=== PATIENT | female | born 1935 | race Caucasian/White ===

== ENCOUNTER 2021-06-24 08:45 | Inpatient (IN) | payer MEDICARE, BC ==
[~2021-06-24] VITALS: Ht 149.9 cm; Wt 85.0 kg
--- NOTE | 2021-06-24 09:00 | PHYS DOC ---
Adult General Chief Complaint Chief Complaint: MECHANICAL FALL HPI HPI Patient is a 86-year-old female who presents via EMS for a fall. This was unwitnessed and occurred at patient's skilled nursing. Patient reports she was in the laundry room and accidentally lost her footing and fell backwards landing in a seated position. She reports right lower back pain that is acute on chronic to her typical back pain without any changes in motor or sensory or neuro function. Also reports that during the fall, she suffered an inversion type ankle injury on the left that resulted in some mild edema, ecchymosis and bleeding of her toenail. She did not hit her head, no loss of consciousness. She does admit she is on blood thinners, warfarin. Denies any prodromal events, specifically no vision changes, recent fever or other upper respiratory infectious symptoms, no chest pain or shortness of breath. Review of Systems Review of Systems Fourteen body systems of review of systems have been reviewed. See HPI for pertinent positives and negative responses, other orta all other systems are negative, non-pertinent or non-contributory Allergies Allergies Allergies Coded Allergies Type Severity Reaction Last Updated Verified ciprofloxacin Allergy Unknown 06/24/21 Yes Uncoded Allergies Type Severity Reaction Last Updated Verified CONTRAST Allergy Unknown 06/24/21 SULFA Allergy Unknown 06/24/21 Physical Exam Physical Exam Constitutional: Pt is oriented to person, place, and time. Age-appropriate and anxious on arrival quivering and squealing at times when nervous HEENT: Head: Normocephalic and atraumatic. External ears unremarkable, negative powell sign Conjunctivae and EOM are normal. Pupils are equal, round, and reactive to light. Oropharynx is clear and moist. No hematomas or lacerations or abrasions to face or scalp OP clear, no blood, no malocclusion, dentition intact Nares clear, no nasal septal hematoma Midface stable Neck: C-spine midline nontender, no step-offs Cardiovascular: Normal rate, regular rhythm and normal heart sounds. Pulmonary/Chest: Effort normal and breath sounds normal. No respiratory distress. No wheezes. CTA bilaterally Abdominal: Soft. Bowel sounds are normal. Pt exhibits no distension. There is no tenderness. Musculoskeletal: Patient does have point tenderness over superior portion of left lateral malleolus of left ankle and base of left fifth metatarsal with mild focal edema and ecchymosis over the left foot. Patient's third toenail has mild crusted blood from the injury without any nailbed matrix involvement or nail instability. She has poor foot hygiene bilaterally Chest wall stable Pelvis stable but patient does admit tenderness to right hip No vertebral TTP and spine without stepoffs Neurological: Pt is alert and oriented to person, place, and time. Moving all extremities willfully, able to wiggle all fingers and toes 2+ patellar and Achilles reflexes Motor and sensory function fully intact to all x4 extremities No saddle anesthesia Downgoing toes bilaterally Skin: Skin is warm and dry. No abrasions, no lacerations Psychiatric: Anxious affect and mood Current Patient Data Vital Signs Vital Signs Date Time Temp Pulse Resp B/P (MAP) Pulse Ox O2 Delivery O2 Flow Rate FiO2 06/24/21 08:53 98.3 102 26 134/32 95 Vital Signs Date Time Temp Pulse Resp B/P (MAP) Pulse Ox O2 Delivery O2 Flow Rate FiO2 06/24/21 08:53 98.3 102 26 134/32 95 EKG EKG EKG ordered and interpreted by myself at 0918 hrs. as sinus rhythm at 92 bpm, prolonged QTC at 485 otherwise unremarkable intervals, left axis deviation, T wave inversion noted to lead aVR and V1 and V2, no STEMI Radiology/Procedures Radiology/Procedures XR FOOT_LEFT 3 VIEWS, XR PELVIS 1-2V, XR EXAM OF ANKLE_LEFT 3V Clinical indications: Reason: unwitnessed fall rt side pain AP view of the pelvis: No acute fracture or dislocation or osteolytic process is evident. 3 view study of the left ankle: There is cortical disruption of the lateral aspect of the distal left fibular epiphysis. No radiolucent fracture line is seen otherwise. This may represent a subtle nondisplaced fracture. The mortise ankle joint is intact. No lytic process is seen. Three-view left foot study: Dorsal subcutaneous soft tissue edema is seen. Moderate-sized plantar spur of the calcaneus is evident. There is a nondisplaced fracture of the distal metaphysis of the fifth proximal phalanx. There are old healed fractures with deformities of the distal metaphysis of the second and third and fourth metatarsal bones. No dislocation is seen. No lytic process is evident. IMPRESSION: Nondisplaced fractures of the distal left fibular epiphysis and the fifth proximal phalanx. Electronically signed by: Jorge Solomon MD (06/24/2021 10:15 AM) [id number] Heart Score C/O Chest Pain: No HEART Score for Chest Pain: HEART Score for Chest Pain Response (Comments) Value History Slighlty/Non-Suspicious 0 Total 0 Risk Factors: Risk Factors: DM, Current or recent (<one month) smoker, HTN, HLP, family history of CAD, obesity. Risk Scores: Risk Factors: DM, Current or recent (<one month) smoker, HTN, HLP, family history of CAD, obesity. Course & Med Decision Making Course & Med Decision Making ABCs unremarkable. I disclosed entirety of ER findings and discussed most likely diagnosis of closed left ankle and foot fractures. I discussed the potential for further diagnostic work-up in ER setting but given that patient fell less than 2 feet backwards on your backside and absence of any posterior vertebral pain or other prodromal symptoms such as chest pain, lightheadedness, dizziness or other concerning symptoms, all other more concerning diagnoses and further work-up was deferred. Plan of care discussed at length with need for close outpatient follow-up to review today's ER visit stressed. Strict return precautions were also discussed at length with good understanding by patient. Patient voiced understanding and agreement with the plan. Patient knows to come back for repeat evaluation if concerning signs or symptoms present prior to outpatient follow-up. Efforts were made to send patient back into rehab facility at same facility which she came from. Social work from [facility] ER assisted with this transition. Order signed. Patient returning to same facility under rehab care Dragon Disclaimer Dragon Disclaimer This electronic medical record was generated, in whole or in part, using a voice recognition dictation system. Departure Departure: Impression: Primary Impression: Closed fracture of epiphyseal plate of distal fibula Additional Impression: Closed fracture of phalanx of left fifth toe Disposition: 04 INTERMEDIATE CARE FACILITY Condition: STABLE Referrals: KEVIN FERGUSON MD (PCP) AREN BERNAL DPM Additional Instructions: You were seen for a fracture or broken bone in your left ankle and foot. You need to follow-up in the orthopedic clinic. Dr. Bernal's information is attached to your discharge packet. You should not use the affected body part until you follow up with orthopedics. Keep the area clean, dry, and avoid getting it wet. You should use ice, usually prescribed pain medications, and elevation to help with swelling and pain. Please participate in occupational and physical therapy provided at your facility. Return to the ED if you develop worsening pain, numbness, tingling, weakness, fever, redness, or any other new or concerning sy mptoms. Problem Qualifiers YESICA ARENAS DO Jun 24, 2021 09:00
--- NOTE | 2021-06-24 10:18 | RAD ---
XR FOOT_LEFT 3 VIEWS, XR PELVIS 1-2V, XR EXAM OF ANKLE_LEFT 3V Clinical indications: Reason: unwitnessed fall rt side pain AP view of the pelvis: No acute fracture or dislocation or osteolytic process is evident. 3 view study of the left ankle: There is cortical disruption of the lateral aspect of the distal left fibular epiphysis. No radiolucent fracture line is seen otherwise. This may represent a subtle nondi splaced fracture. The mortise ankle joint is intact. No lytic process is seen. Three-view left foot study: Dorsal subcutaneous soft tissue edema is seen. Moderate-sized plantar spu r of the calcaneus is evident. There is a nondisplaced fracture of the distal metaphysis of the fifth proximal phalanx. There are old healed fractures with deformities of the distal metaphysis of the se cond and third and fourth metatarsal bones. No dislocation is seen. No lytic process is evident. IMPRESSION: Nondisplaced fractures of the distal left fibular epiphysis and the fifth proximal phalan x. Electronically signed by: Jorge Solomon MD (06/24/2021 10:15 AM) [id number]
[2021-06-24] MEDS ORDERED: LIDOCAINE (700MG/PATCH) PATCH. ONE (11:11)
[2021-06-24] MEDS ORDERED: ACETAMINOPHEN 325 MG TABLET PO ONE ×2 (11:11→11:15)
[2021-06-24] MEDS ORDERED: traMADol 50 MG TABLET PO ONE (11:30)
--- NOTE | 2021-06-24 12:07 | EKG ---
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
--- NOTE | 2021-06-24 15:38 | RAD ---
EXAM: Chest, single view. HISTORY: Fall. Pain. COMPARISON: None. FINDINGS: A frontal view of the chest is obtained. There is diffuse increased interstitial opacity. N o consolidation, pleural effusion or pneumothorax is seen. There is a calcified left upper lobe granu benita. There is cardiomegaly. There is chronic deformity of the right shoulder. IMPRESSION: 1. Diffuse increased interstitial opacity likely due to pulmonary congestion. This may be superimpose d on chronic interstitial changes. 2. Cardiomegaly. Electronically signed by: Leana Watt MD (06/24/2021 3:35 PM) [id number]
--- NOTE | 2021-06-24 15:39 | RAD ---
EXAM: Left knee, 3 views. HISTORY: Pain. COMPARISON: None. FINDINGS: 3 views of the left knee are obtained. There is moderate to severe lateral compartment join t space narrowing with subchondral sclerosis and spurring. There is mild to moderate patellofemoral c ompartment spurring. There is no fracture, dislocation or subluxation. There is a moderate to large l eft knee effusion. IMPRESSION: 1. Moderate to severe lateral compartment and mild to moderate tricompartmental femoral compartment o steoarthritis of the left knee. 2. Moderate to large left knee effusion. Electronically signed by: Leana Watt MD (06/24/2021 3:36 PM) [id number]
[2021-06-24] MEDS ORDERED: ACETAMINOPHEN 325 MG TABLET PO PRN (16:45)
[2021-06-24] MEDS ORDERED: NITROGLYCERIN SUBLINGUAL 0.4 MG BOTTLE OF 25. SL PRN (16:45)
[2021-06-24] MEDS ORDERED: traMADol 50 MG TABLET ONE (18:01)
[2021-06-24 18:50] VITALS: BP 171/75
[2021-06-24] MEDS ORDERED: PATCH REMOVAL. MC SCH (21:00)
[2021-06-24] MEDS ORDERED: WARFARIN 2.5 MG TABLET. PO ONE (21:00)
[2021-06-24] MEDS ORDERED: EZETIMIBE 10 MG TABLET PO SCH (21:00)
[2021-06-24] MEDS ORDERED: ZOLPIDEM 5 MG TABLET. PO PRN (21:00)
[2021-06-24] MEDS ORDERED: SIMVASTATIN 20 MG TABLET PO SCH (21:00)
[2021-06-24 21:16] LABS: BASO % 0 % (0-3); EOS % 0 % (0-3); HEMATOCRIT 33.9 % (36.0-47.0); HEMOGLOBIN 11.1 g/dL (12.0-15.5); LYMPH # 0.6 x10^3/uL (1.0-4.8); LYMPH % 7 % (24-48); MEAN CORPUSCULAR HEMOGLOBIN 33 pg (25-35); MEAN CORPUSCULAR HGB CONC 33 g/dL (31-37); MEAN CORPUSCULAR VOLUME 100 fL (79-100); MONO % 12 % (0-9); NEUT # 6.6 x10^3uL (1.8-7.7); NEUT % 80 % (31-73); PLATELET COUNT 169 x10^3/uL (140-400); RED BLOOD COUNT 3.38 x10^6/uL (3.50-5.40); RED CELL DISTRIBUTION WIDTH 14.5 % (11.5-14.5); WHITE BLOOD COUNT 8.3 x10^3/uL (4.0-11.0)
[2021-06-24 21:28] LABS: CALCIUM 8.2 mg/dL (8.5-10.1); CREATININE 1.7 mg/dL (0.6-1.0); GFR 28.5; POTASSIUM 4.6 mmol/L (3.5-5.1)
[2021-06-24] MEDS: METOPROLOL TART IMMED RELEASE 50 MG TABLET PO SCH (22:04)
[2021-06-24] MEDS: ACETAMINOPHEN 325 MG TABLET PO PRN ×2 (22:05→22:35)
[2021-06-24] MEDS: traMADol 50 MG TABLET PO PRN (22:07)
[2021-06-24] MEDS: LISINOPRIL 20 MG TABLET PO SCH (22:07)
[2021-06-24 23:00] VITALS: BP 148/69
[2021-06-25] MEDS ORDERED: HYDR12.58 PO (00:52)
[2021-06-25] MEDS ORDERED: PANT20TA4 PO (00:52)
[2021-06-25] MEDS ORDERED: POTA10TA5 PO (00:52)
[2021-06-25] MEDS ORDERED: LEVO75TA5 PO (00:52)
[2021-06-25] MEDS: traMADol 50 MG TABLET PO PRN ×2 (06:10→21:35)
[2021-06-25] MEDS: ACETAMINOPHEN 325 MG TABLET PO PRN ×3 (06:10→23:07)
[2021-06-25] MEDS: LEVOTHYROXINE 75 MCG TABLET PO SCH (06:10)
[2021-06-25 06:28] VITALS: BP 151/74
[2021-06-25] MEDS: POTASSIUM CHLORIDE 10 MEQ TABLET.ER. PO SCH (07:45)
[2021-06-25] MEDS: METOPROLOL TART IMMED RELEASE 50 MG TABLET PO SCH ×4 (07:45→20:27)
[2021-06-25] MEDS: hydroCHLOROthiazide 12.5 MG CAPSULE PO SCH (07:45)
[2021-06-25] MEDS: PANTOPRAZOLE 40 MG TABLET. PO SCH (07:46)
[2021-06-25] MEDS ORDERED: LIDOCAINE (700MG/PATCH) PATCH. TD SCH (09:00)
[2021-06-25] MEDS ORDERED: LIDOCAINE (700MG/PATCH) PATCH. TD ONE (09:00)
[2021-06-25 10:56] VITALS: BP 120/73
[2021-06-25] MEDS ORDERED: HYDR-2869 PO (12:22)
[2021-06-25] MEDS ORDERED: WARF2.5T71 PO (12:45)
[2021-06-25] MEDS ORDERED: TRAM50TA PO (12:45)
[2021-06-25] MEDS ORDERED: EZET1TAB30 PO (12:45)
[2021-06-25] MEDS ORDERED: CALC1CAP6 PO (12:45)
[2021-06-25] MEDS ORDERED: LISI20TA18 PO (12:45)
[2021-06-25] MEDS ORDERED: NEBI10TA3 PO (12:45)
[2021-06-25] MEDS ORDERED: WARF-31 PO (12:45)
[2021-06-25] MEDS ORDERED: traMADol 50 MG TABLET PO PRN (14:45)
[2021-06-25 15:06] VITALS: BP 144/80
--- NOTE | 2021-06-25 15:22 | HP ---
HISTORY OF PRESENT ILLNESS: An 86-year-old female who apparently slipped and fell and suffered nondisplaced fractures of the distal left fibular epiphysis and fifth proximal phalanx. She is a member of the [facility] and this being a Sunday, they do not readmit, so she was admitted to the hospital for further evaluation. Upon further dissertation, the patient was found to have a coag INR of 5, although she did not have any serious bleeding. Her SARS COVID was negative. The rest of her basic labs were stable except for an elevated BNP. 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 HOME MEDICATIONS: Presently include warfarin 5 mg Sunday, Sunday, Sunday, , Sunday, Sunday and extra 2.5 mg on Sunday, Vytorin 10/20, hydralazine 50 mg b.i.d., Bystolic 10 mg at bedtime, lisinopril 20, tramadol, potassium chloride, calcium carbonate, hydrochlorothiazide, Protonix 20, and levothyroxine 75 mcg. ALLERGIES: IODINE, CONTRAST MEDIA, SULFA, SULFONAMIDES AND CIPROFLOXACIN. SOCIAL HISTORY: No smoking, alcohol or drug use. The patient is full code. FAMILY HISTORY: Unremarkable. REVIEW OF SYSTEMS: The patient denies any headaches, visual changes, blurred vision, double vision. Slipped on the floor. Denies chest pain, shortness of breath, abdominal pain. Does have pain down in her ankle area of the distal left leg, but other than that, the patient says she has normal sensation there. PHYSICAL EXAMINATION: GENERAL: Pleasant white female. VITAL SIGNS: Blood pressure 150/70, respiratory rate 17, pulse 60, afebrile, 2 liters at 93. The patient is alert and oriented as noted. LUNGS: Diminished but basically clear. CARDIOVASCULAR: Regular sinus rhythm. HEENT: The patient's head was atraumatic, normocephalic. Eyes: PERRLA, without jaundice noted. ABDOMEN: Soft, protuberant, but nontender. EXTREMITIES: Without clubbing, cyanosis. Trace edema of left ankle foot area, was splinted and in position. Pulses noted distally with capillary refill. NEUROLOGIC: The patient was alert and oriented. Speech fluent, spontaneous, and appropriate; quite demonstrative about her medications and her renal function and Dr. Gutierrez asked to control those medications. IMPRESSION: A slip and fall at [place], nondisplaced fractures of the distal left fibular epiphysis and fifth proximal phalanx, mild pulmonary congestion, essential hypertension, chronic kidney disease stage IIIB, hypocoagulable state. Hold her Coumadin. Monitor PT, OT to evaluate and make further evaluation on her as indicated. ERNESTO DR: Kelvin TID: [id number]
[2021-06-25 19:05] VITALS: BP 126/72
[2021-06-25] MEDS ORDERED: coumadin PO ×2 (19:26)
[2021-06-25] MEDS: LISINOPRIL 20 MG TABLET PO SCH (19:54)
[2021-06-25] MEDS: SIMVASTATIN 20 MG TABLET PO SCH (19:55)
[2021-06-25] MEDS ORDERED: LISINOPRIL 20 MG TABLET PO SCH (21:00)
[2021-06-25 22:35] VITALS: BP 114/67
[2021-06-26] MEDS: traMADol 50 MG TABLET PO PRN ×3 (04:07→17:42)
[2021-06-26] MEDS: LEVOTHYROXINE 75 MCG TABLET PO SCH (05:20)
[2021-06-26 05:40] VITALS: BP 156/84
[2021-06-26] MEDS: POTASSIUM CHLORIDE 10 MEQ TABLET.ER. PO SCH (08:00)
[2021-06-26] MEDS: hydroCHLOROthiazide 12.5 MG CAPSULE PO SCH (08:40)
[2021-06-26] MEDS: PANTOPRAZOLE 40 MG TABLET. PO SCH (08:40)
[2021-06-26] MEDS: METOPROLOL TART IMMED RELEASE 50 MG TABLET PO SCH ×2 (08:41→20:04)
[2021-06-26] MEDS: EZETIMIBE 10 MG TABLET PO SCH (08:42)
[2021-06-26] MEDS: ACETAMINOPHEN 325 MG TABLET PO PRN ×2 (08:42→20:04)
[2021-06-26] MEDS ORDERED: NON FORMULARY ITEM (Nebivolol Hcl (Bystolic) 1 TAB) PO SCH (09:00)
[2021-06-26 11:17] VITALS: BP 139/80
[2021-06-26 16:10] VITALS: BP 159/88
[2021-06-26 19:29] VITALS: BP 150/73
[2021-06-26] MEDS: LISINOPRIL 20 MG TABLET PO SCH (20:04)
[2021-06-26] MEDS: SIMVASTATIN 20 MG TABLET PO SCH (20:04)
--- NOTE | 2021-06-26 23:17 | PN ---
SUBJECTIVE: An 86-year-old female who came in of course with a fracture of her left lower leg. The patient is resting fairly comfortably. Because of protocols at her facility, she is not able to get back. Her INR is still 4.2 and needs to be rechecked and adjusted on her Coumadin. Otherwise, the patient has no complaints. Does not want to adjust any of her medications and that will be taken care of. OBJECTIVE: VITAL SIGNS: Blood pressure 159/88, respiratory rate 18, pulse 75, afebrile, 92 on room air. GENERAL: The patient otherwise alert and oriented. LUNGS: Clear. CARDIOVASCULAR: stable. ABDOMEN: Soft, nontender. EXTREMITIES: The ankle was in a splint and seems to be holding on her own, apparently sat on the side of the bed today and made some progress in that regard. PLAN: She will be transferred to the rehabilitation center hopefully at [place] soon. MILLICENT DR: Kelvin TID: [id number]
[2021-06-26 23:51] VITALS: BP 145/79
[2021-06-27] MEDS: ACETAMINOPHEN 325 MG TABLET PO PRN (02:12)
[2021-06-27] MEDS: traMADol 50 MG TABLET PO PRN (02:12)
[2021-06-27] MEDS: LEVOTHYROXINE 75 MCG TABLET PO SCH (06:06)
[2021-06-27 06:19] VITALS: BP 180/97
[2021-06-27 06:25] VITALS: BP 171/85
[2021-06-27 06:34] LABS: ALBUMIN 2.5 g/dL (3.4-5.0); CALCIUM 8.1 mg/dL (8.5-10.1); CREATININE 1.6 mg/dL (0.6-1.0); GFR 30.6; PHOSPHORUS 3.3 mg/dL (2.6-4.7); POTASSIUM 4.2 mmol/L (3.5-5.1)
[2021-06-27] MEDS: POTASSIUM CHLORIDE 10 MEQ TABLET.ER. PO SCH (08:00)
[2021-06-27] MEDS: hydroCHLOROthiazide 12.5 MG CAPSULE PO SCH (08:43)
[2021-06-27] MEDS: METOPROLOL TART IMMED RELEASE 50 MG TABLET PO SCH (08:44)
[2021-06-27] MEDS: EZETIMIBE 10 MG TABLET PO SCH (08:44)
[2021-06-27] MEDS: PANTOPRAZOLE 40 MG TABLET. PO SCH (08:44)
--- NOTE | 2021-06-27 09:33 | DISCH ---
DISCHARGE ORDERS DISCHARGE DATE: Jun 27, 2021 FINAL DIAGNOSIS nondisplaced fractures of the distal left fibular epiphysis and fifth proximal phalanx CONDITION AT DISCHARGE: Stable Code Status: Full SNF STAY <30 DAYS: Yes HOSPICE: No HOSPICE EVALUATE & TREAT: No ADMIT TO LTAC: No POST DISCHARGE ORDERS: ACTIVITY ORDERS: Activity as tolerated WEIGHT BEARING STATUS: Non weight bearing DIET AFTER DISCHARGE: Regular WOUND/INCISION CARE: Ice to area for comfort DISCHARGE MEDICATIONS: Home Meds Reported Medications [coumadin] No Conflict Check, 2.5 MG PO qd except on Sun06/25/21 [coumadin] No Conflict Check, 5 MG PO q Sun06/25/21 Ezetimibe/Simvastatin (VYTORIN 10-20 MG TABLET) 1 Each Tablet, 1 TAB PO DAILY for . for 30 Days, #30 TAB 0 Refills 06/25/21 Tramadol Hcl (TRAMADOL HCL) 50 Mg Tablet, 50 MG PO PRN Q6HRS PRN for PAIN, TAB 06/25/21 Lisinopril (LISINOPRIL) 20 Mg Tablet, 1 TAB PO QHS for ., #30 TAB 5 Refills 06/25/21 Calcium Carbonate/Vitamin D3 (CALCIUM 600 + VIT D SOFTGEL) 1 Each Capsule, 1 EACH PO DAILY for ., CAP 06/25/21 Nebivolol Hcl (BYSTOLIC) 10 Mg Tablet, 1 TAB PO DAILY for ., #90 TAB 1 Refill 06/25/21 Hydralazine Hcl (HYDRALAZINE HCL) 50 Mg Tablet, 1 TAB PO BID for ., #180 TAB 3 Refills 06/25/21 Levothyroxine Sodium (LEVOTHYROXINE SODIUM) 75 Mcg Tablet, 1 TAB PO DAILY for HYPOTHYRIOD, #30 TAB 5 Refills 06/25/21 Potassium Chloride (KLOR-CON 10) 10 Meq Tablet.er, 1 TAB PO DAILY for SUPPLEMENT for 30 Days, #30 TAB 0 Refills 06/25/21 Pantoprazole Sodium (PANTOPRAZOLE SODIUM) 20 Mg Tablet.dr, 20 MG PO DAILY for GERD, TAB 06/25/21 Hydrochlorothiazide (HYDROCHLOROTHIAZIDE TABLET) 12.5 Mg Tablet, 12.5 MG PO DAILY for DIURETIC, TAB 0 Refills 06/25/21 KEVIN FERGUSON MD Jun 27, 2021 09:33
[2021-06-27] MEDS ORDERED: LORazepam 0.5 MG TABLET PO PRN (10:00)
[2021-06-27] MEDS ORDERED: BISACODYL TAB 5 MG TABLET.DR. PO ONE (10:00)
[2021-06-27 11:04] VITALS: BP 132/80
== END 2021-06-27 15:00 | DRG 542 ==
LOC: ER 08:45 → 1 SOUTH 16:44 → ER 18:19
PROVIDERS: ADMIT Family Medicine; ATTEND Family Medicine
DX: M80.062A Age-related osteoporosis with current pathological fracture, left lower leg, initial encounter for fracture (principal); E43 Unspecified severe protein-calorie malnutrition; G89.29 Other chronic pain; W01.0XXA Fall on same level from slipping, tripping and stumbling without subsequent striking against object, initial encounter; Z20.822 Contact with and (suspected) exposure to COVID-19; M80.072A Age-related osteoporosis with current pathological fracture, left ankle and foot, initial encounter for fracture; N18.32 Chronic kidney disease, stage 3b; I12.9 Hypertensive chronic kidney disease with stage 1 through stage 4 chronic kidney disease, or unspecified chronic kidney disease; Z88.2 Allergy status to sulfonamides; Z88.1 Allergy status to other antibiotic agents; Z91.041 Radiographic dye allergy status; Y93.89 Activity, other specified; Y92.89 Other specified places as the place of occurrence of the external cause; Y99.8 Other external cause status; Z68.37 Body mass index [BMI] 37.0-37.9, adult
CPT/HCPCS: 36415; 71045; 72170; 73562; 73610; 73630; 80048; 80069; 83880; 85025; 85610; 87426; 93005; U0003; 97110; 97530; 97535; 99285-25

== ENCOUNTER 2021-08-18 11:27 | Observation (INO) | payer MEDICARE, BC ==
[~2021-08-18] VITALS: Ht 152.4 cm; Wt 82.5 kg
[~2021-08-18 11:27] MED LIST: CALC1CAP6 PO; EZET1TAB30 PO; HYDR-2869 PO; HYDR12.58 PO; LEVO75TA5 PO; LISI20TA18 PO; NEBI10TA3 PO; PANT20TA4 PO; POTA-112 PO; TRAM50TA PO; WARF-31 PO; WARF2.5T71 PO; coumadin PO
--- NOTE | 2021-08-18 12:12 | PHYS DOC ---
Past History Additional Past Medical Histor: P.E. (OLGA SAMUEL APRN) Past Surgical History: Tubal ligation (OLGA SAMUEL APRN) Alcohol Use: None (OLGA SAMUEL APRN) General Adult EDM: Chief Complaint: FOOT INJURY PAIN HPI: HPI: Patient is a 86-year-old female presents with left foot pain. Patient states "yesterday my friend was helping me put my shoe on and that is when the pain started". "I broke my ankle 3 months ago and just finished rehab". Patient is reporting pain to her left heel. Unable to bear weight. Denies known trauma. pain is increased with dorsiflexion. Pedal pulses are intact. Denying anything for pain. (OLGA SAMUEL APRN) Review of Systems: Review of Systems: ROS At least 10 ROS systems have been reviewed and are negative except as documented in the HPI. General: Negative except as outlined in HPI above. Skin: Negative except as outlined in HPI above. HEENT: Negative except as outlined in HPI above. Neck: Negative except as outlined in HPI above. Respiratory: Negative except as outlined in HPI above.. Cardiovascular: Negative except as outlined in HPI above. Abdomen: Negative except as outlined in HPI above. : Negative except as outlined in HPI above. Back/MSK: Negative except as outlined in HPI above. Neuro: Negative except as outlined in HPI above. Psych: Negative except as outlined in HPI above. (OLGA SAMUEL APRN) Allergies: Allergies: Allergies Coded Allergies Type Severity Reaction Last Updated Verified Iodinated Contrast Media Allergy Unknown 06/24/21 Yes Sulfa (Sulfonamide Antibiotics) Allergy Unknown 06/24/21 Yes ciprofloxacin Allergy Unknown 06/24/21 Yes (OLGA SAMUEL APRN) Physical Exam: PE: Constitutional: Well developed, well nourished, no acute distress, non-toxic appearance. [] HENT: Normocephalic, atraumatic, bilateral external ears normal, oropharynx moist, no oral exudates, nose normal. [] Eyes: PERRLA, EOMI, conjunctiva normal, no discharge. [] Neck: Normal range of motion, no tenderness, supple, no stridor. [] Cardiovascular:Heart rate regular rhythm, no murmur [] Lungs & Thorax: Bilateral breath sounds clear to auscultation [] Abdomen: Bowel sounds normal, soft, no tenderness, no masses, no pulsatile masses. [] Skin: Warm, dry, no erythema, no rash. [] Back: No tenderness, no CVA tenderness. [] Extremities: Left foot tenderness, no cyanosis, no clubbing, unable to bear weight, no edema, pedal pulses intact Neurologic: Alert and oriented X 3, normal motor function, normal sensory fu nction, no focal deficits noted. [] Psychologic: Affect normal, judgement normal, mood normal. [] (OLGA SAMUEL APRN) Current Patient Data: Vital Signs: Vital Signs Date Time Temp Pulse Resp B/P (MAP) Pulse Ox O2 Delivery O2 Flow Rate FiO2 08/18/21 11:29 98.3 78 16 155/73 (100) 96 Room Air (OLGA SAMUEL APRN) EKG: EKG: [] (OLGA SAMUEL APRN) Radiology/Procedures: Radiology/Procedures: [] Left foot 3 views, left ankle views. HISTORY: Pain Left ankle 3 views were taken left ankle. There is soft tissue swelling. There is not evidence of an acute fracture at the ankle. Left foot 3 views were taken the left foot. There are fractures of the head of the second, third, and fourth metatarsals with mild angulated. There is flexion deformities of the toes. There is soft tissue swelling of the foot. IMPRESSION: 1. No acute fracture noted left ankle. 2. Soft tissue swelling left foot and ankle. 3. Fractures of the heads of the distal second, third and fourth metatarsals. 4. Flexion deformities of the toes. Electronically signed by: Coy Steele MD (08/18/2021 12:22 PM) [id number] (OLGA SAMUEL APRN) Heart Score: C/O Chest Pain: No Risk Factors: Risk Factors: DM, Current or recent (<one month) smoker, HTN, HLP, family history of CAD, obesity. Risk Scores: Score 0 - 3: 2.5% MACE over next 6 weeks - Discharge Home Score 4 - 6: 20.3% MACE over next 6 weeks - Admit for Clinical Observation Score 7 - 10: 72.7% MACE over next 6 weeks - Early Invasive Strategies (OLGA SAMUEL APRN) Course & Med Decision Making: Course & Med Decision Making Pertinent Labs and Imaging studies reviewed. (See chart for details) [] 86-year-old female with pain to ball of foot and Achilles. X-ray of left foot and ankle ordered to rule out fracture. Denies trauma. Pedal pulses are intact. Patient is unable to bear weight. X-ray of left foot and ankle are both negative for fracture. Patient states that she is unable to walk on her foot even with her boot and concerned about going home. Spoke with Dr. Sanchez who will accept patient for left foot pain and chronic deconditioning. (OLGA SAMUEL APRN) Course & Med Decision Making I was the Attending physician on the above date of service of this patient. This patient was evaluated, examined, treated, and dispositioned from the emergency department by the mid-level practitioner. Patient unable to safely ambulate and care for self at home. Does not have regular care at home to assist through personal deficits. Unsafe to disposition home; at minimum plan admission for home safety evaluation, social and physical therapy evaluations, possible placement Electronically signed, Yesica Arenas DO (YESICA ARENAS DO) Estefani Disclaimer: Estefani Disclaimer: This electronic medical record was generated, in whole or in part, using a voice recognition dictation system. (OLGA SAMUEL APRN) Departure Departure: Impression: Primary Impression: Ankle pain, left Qualified Codes: M25.572 - Pain in left ankle and joints of left foot Additional Impression: Physical deconditioning Disposition: ADMITTED INPATIENT Admitting Physician: Kevin Ferguson (OLGA SAMUEL APRN) Condition: STABLE Referrals: KEVIN FERGUSON MD (PCP) OLGA SAMUEL APRN Aug 18, 2021 12:12 YESICA ARENAS DO Aug 22, 2021 11:52
--- NOTE | 2021-08-18 12:25 | RAD ---
Left foot 3 views, left ankle views. HISTORY: Pain Left ankle 3 views were taken left ankle. There is soft tissue swelling. There is not evidence of an acute fract ure at the ankle. Left foot 3 views were taken the left foot. There are fractures of the head of the second, third, and fourth me tatarsals with mild angulated. There is flexion deformities of the toes. There is soft tissue swellin g of the foot. IMPRESSION: 1. No acute fracture noted left ankle. 2. Soft tissue swelling left foot and ankle. 3. Fractures of the heads of the distal second, third and fourth metatarsals. 4. Flexion deformities of the toes. Electronically signed by: Coy Steele MD (08/18/2021 12:22 PM) [id number]
[2021-08-18] MEDS ORDERED: traMADol 50 MG TABLET PO ONE (14:15)
[2021-08-18 16:26] VITALS: BP 159/73
[2021-08-18] MEDS ORDERED: ACET325T21 PO (18:35)
[2021-08-18 19:52] VITALS: BP 104/68
[2021-08-18] MEDS ORDERED: ACETAMINOPHEN 325 MG TABLET PO PRN (20:45)
[2021-08-18] MEDS ORDERED: COUMADIN 5 MG PO SCH (20:45)
[2021-08-18] MEDS ORDERED: WARFARIN 2.5 MG PO SCH (20:45)
[2021-08-18] MEDS ORDERED: LISINOPRIL 20 MG TABLET PO SCH (21:00)
[2021-08-18] MEDS: traMADol 50 MG TABLET PO PRN (21:47)
[2021-08-18 23:19] VITALS: BP 148/68
[2021-08-19] MEDS ORDERED: LEVOTHYROXINE 75 MCG TABLET PO SCH (06:00)
[2021-08-19 06:03] VITALS: BP 153/80
[2021-08-19 08:05] VITALS: BP 153/80
[2021-08-19] MEDS: traMADol 50 MG TABLET PO PRN (08:42)
[2021-08-19] MEDS ORDERED: PANTOPRAZOLE 40 MG TABLET. PO SCH (09:00)
[2021-08-19] MEDS ORDERED: CHOLECALCIFEROL (VITAMIN D3) 1,000 UNIT TABLET PO SCH (09:00)
[2021-08-19] MEDS ORDERED: METOPROLOL TART IMMED RELEASE 50 MG TABLET PO SCH (09:00)
[2021-08-19] MEDS ORDERED: SIMVASTATIN 20 MG TABLET PO SCH (09:00)
[2021-08-19] MEDS ORDERED: hydroCHLOROthiazide 12.5 MG CAPSULE PO SCH (09:00)
[2021-08-19] MEDS ORDERED: EZETIMIBE 10 MG TABLET PO SCH (09:00)
[2021-08-19] MEDS ORDERED: CALCIUM CARB/VIT D3 500/200 TABLET PO SCH ×2 (09:00→17:00)
[2021-08-19] MEDS ORDERED: POTASSIUM CHLORIDE 10 MEQ TABLET.ER. PO SCH (09:00)
--- NOTE | 2021-08-19 09:23 | DISCH ---
HOME HEALTH DISCHARGE/MEDS DISCHARGE INFORMATION: Discharge Date: Aug 19, 2021 Final Diagnosis: Problems Medical Problems: (1) Ankle pain, left Status: Acute (2) Physical deconditioning Status: Acute Condition on Discharge: Stable CODE STATUS: Code Status: Full HOME HEALTH: Face to Face: I certify this patient is under my care and that I, or a nurse practitioner or physician's geriatric nurse assistant working with me, had a face to face encounter that meets the physician face to face encounter requirements with this patient on August 19, 2021. Medical Condition(s): Falls, FX, HTN Nursing Home For: Assess Cardiopulm Status, Assess & Educate Safety, Assess/Skilled Observatio, Medication Management, Pain Management Physical Therapy For: Evalulation/Treatment Occupational Therapy For: Evaluation/Treatment POST DISCHARGE ORDERS: Activity Instructions for Disc: Activity as tolerated Weight Bearing Status after Di: No restrictions DIET AFTER DISCHARGE: Cardiac CHECKS AFTER DISCHARGE: Checks after discharge: Check blood press - daily CERTIFICATION STATEMENT: Certification Statement: Based on the above finding, I certify that this patient is confined to the home and needs intermittent fpc care, physical therapy and/or speech therapy, or continues to need occupational therapy.~ This patient is under my care, and I have initiated the establishment of the plan of care.~ This patient will be followed by myself or a community physician who will periodically review the plan of care. DISCHARGE MEDICATIONS: Home Meds Reported Medications Acetaminophen (ACETAMINOPHEN) 325 Mg Tablet, 1 TAB PO Q6HRS PRN for pain or fever for 24 Days, #100 TAB 0 Refills 08/18/21 [coumadin] No Conflict Check, 2.5 MG PO qd except on Sun06/25/21 [coumadin] No Conflict Check, 5 MG PO q Wed 06/25/21 Ezetimibe/Simvastatin (VYTORIN 10-20 MG TABLET) 1 Each Tablet, 1 TAB PO DAILY for . for 30 Days, #30 TAB 0 Refills 06/25/21 Tramadol Hcl (TRAMADOL HCL) 50 Mg Tablet, 50 MG PO PRN Q6HRS PRN for PAIN, TAB 06/25/21 Lisinopril (LISINOPRIL) 20 Mg Tablet, 1 TAB PO QHS for ., #30 TAB 5 Refills 06/25/21 Calcium Carbonate/Vitamin D3 (CALCIUM 600 + VIT D SOFTGEL) 1 Each Capsule, 1 EACH PO DAILY for ., CAP 06/25/21 Nebivolol Hcl (BYSTOLIC) 10 Mg Tablet, 1 TAB PO DAILY for ., #90 TAB 1 Refill 06/25/21 Hydralazine Hcl (HYDRALAZINE HCL) 50 Mg Tablet, 1 TAB PO BID for ., #180 TAB 3 Refills 06/25/21 Levothyroxine Sodium (LEVOTHYROXINE SODIUM) 75 Mcg Tablet, 1 TAB PO DAILY for HYPOTHYRIOD, #30 TAB 5 Refills 06/25/21 Potassium Chloride (KLOR-CON 10) 10 Meq Tablet.er, 1 TAB PO DAILY for SUPPLEMENT for 30 Days, #30 TAB 0 Refills 06/25/21 Pantoprazole Sodium (PANTOPRAZOLE SODIUM) 20 Mg Tablet.dr, 20 MG PO DAILY for GERD, TAB 06/25/21 Hydrochlorothiazide (HYDROCHLOROTHIAZIDE TABLET) 12.5 Mg Tablet, 12.5 MG PO JORGE Y for DIURETIC, TAB 0 Refills 06/25/21 KEVIN FERGUSON MD Aug 19, 2021 09:23
--- NOTE | 2021-08-19 09:33 | HP ---
DATE OF SERVICE: 08/19/2021 ADMIT DATE: 08/18/2021 HISTORY OF PRESENT ILLNESS: This is an 86-year-old female came in through the Emergency Room with a chief complaint of severe pain in her left foot. The patient had severe pain in her left foot and ankle. She previously had a fracture to the foot approximately 3 months ago. She says she could not bear weight on it. She was in severe pain of 9/10. She said she was unable to take care of herself at home, so she was admitted for evaluation and placement into a nursing facility, which was cleared with her family. She refused an IV. She refused some other testing as well. PAST MEDICAL HISTORY: Includes cardiac problems, hypertension, pulmonary emboli, hysterectomy, arthritis, fractures left heel and left toe fractures, back pain, hypothyroidism, some clotting problems. Her vaccinations for diphtheria, tetanus are up-to-date as well as influenza as well as COVID. FAMILY HISTORY: Arthritis in father and mother. ALLERGIES: CONTRAST MEDIA IODINATED, SULFUR AND CIPROFLOXACIN. SOCIAL HISTORY: No smoking, alcohol or drug use. She is a full code. REVIEW OF SYSTEMS: The patient denies any problems with headaches, visual changes, blurred vision, double vision. Denies any melena, hematochezia, or hematemesis. Denies any trouble swallowing. Denies chest pain, shortness of breath, abdominal pain. Denies nausea, vomiting. Denies any problems with urination. She does have pain in her left foot, more severe now than she has had in a while since her friend try to put her shoe on and felt severe pain in that foot. PHYSICAL EXAMINATION: GENERAL: This is a very pleasant female, looking younger than stated age. VITAL SIGNS: Blood pressure 153/80, respiratory rate 18, pulse 70, afebrile, 96% oxygen saturation. NEUROLOGIC: The patient is alert and oriented. Her speech is spontaneous and appropriate. She is alert and oriented x3. HEENT: Her eyes were PERRLA. Mouth and throat were normal. NECK: Supple without JVD, carotid bruits, or thyroidmegaly. LUNGS: Diminished throughout, but clear. CARDIOVASCULAR: Regular sinus rhythm, S1, S2, without murmur, rub, thrill, or extra heart sound. ABDOMEN: Soft, nontender, no rebound or guarding. Positive bowel sounds. No hepatosplenomegaly. No bruits were noted. EXTREMITIES: Without clubbing, cyanosis, nor edema. The patient's pulses were 2/4, good capillary refill. The left foot, however, showed tenderness on palpation of the hands of the distal second, third and fourth metatarsals and there was some flexion deformities considering these were hammertoes, but they were tender, but not extremely off the chart. NEUROLOGIC: Neurologically, as noted, she seemed to be at baseline, stable, alert and oriented and so forth. LABORATORY DATA: The patient had no labs drawn down in the Emergency Room, but those are trying to be obtained as well and will continue to be monitored on that as well as her protime as she is on warfarin, trying to assess whether or not she needs to stay on it long-term or not. IMPRESSION: Intractable pain, history of fractures to the foot. She is COVID negative. Essential hypertension. PLAN: Continue to work her up as much as she will allow us to and possibly placement in a nursing facility per family's request. SAL DR: Kelvin TID: [id number]
[2021-08-19 09:48] LABS: BASO % 1 % (0-3); EOS # 0.1 x10^3/uL (0.0-0.7); EOS % 2 % (0-3); HEMATOCRIT 35.8 % (36.0-47.0); HEMOGLOBIN 11.6 g/dL (12.0-15.5); LYMPH # 0.6 x10^3/uL (1.0-4.8); LYMPH % 12 % (24-48); MEAN CORPUSCULAR HEMOGLOBIN 33 pg (25-35); MEAN CORPUSCULAR HGB CONC 32 g/dL (31-37); MEAN CORPUSCULAR VOLUME 102 fL (79-100); MONO # 0.5 x10^3/uL (0.0-1.1); MONO % 12 % (0-9); NEUT # 3.3 x10^3uL (1.8-7.7); NEUT % 73 % (31-73); PLATELET COUNT 240 x10^3/uL (140-400); RED BLOOD COUNT 3.52 x10^6/uL (3.50-5.40); RED CELL DISTRIBUTION WIDTH 15.5 % (11.5-14.5); WHITE BLOOD COUNT 4.6 x10^3/uL (4.0-11.0)
[2021-08-19 09:53] LABS: CALCIUM 8.8 mg/dL (8.5-10.1); CREATININE 1.8 mg/dL (0.6-1.0); GFR 26.7; POTASSIUM 4.6 mmol/L (3.5-5.1)
== END 2021-08-19 11:28 | disposition home health service (06) ==
LOC: ER 11:27 → 1 SOUTH 13:06 → INTOOBSV 13:06 → ER 16:00
PROVIDERS: ADMIT Family Medicine; ATTEND Family Medicine
DX: M25.572 Pain in left ankle and joints of left foot (principal); Z20.822 Contact with and (suspected) exposure to COVID-19; M79.672 Pain in left foot; I10 Essential (primary) hypertension; M19.90 Unspecified osteoarthritis, unspecified site; E03.9 Hypothyroidism, unspecified; Z86.711 Personal history of pulmonary embolism; Z90.710 Acquired absence of both cervix and uterus; Z98.51 Tubal ligation status
CPT/HCPCS: 36415; 73610; 73630; 80048; 85025; 85610; 87426; 97162; 97166; 97535; 99284; G0378; U0003; G0379